=== PATIENT | female | born 1990 | race Two or more races ===

== ENCOUNTER 2020-12-16 20:54 | Emergency (ER) | payer SELFPAY ==
[~2020-12-16] VITALS: Ht 175.3 cm; Wt 95.1 kg
[2020-12-16] MEDS ORDERED: KETOROLAC 30 MG/1 ML ONE (21:38)
[2020-12-16] MEDS ORDERED: KETOROLAC 30 MG/1 ML IVPush ONE (22:00)
[2020-12-16] MEDS ORDERED: SODIUM CHLORIDE 0.9% 1,000ML IVBOLUS ONE (22:00)
[2020-12-16 22:04] LABS: BASOPHILS % (AUTO) 1 % (0-1); EOSINOPHILS % (AUTO) 0 % (1-7); LYMPHOCYTES % (AUTO) 23 % (22-44); MEAN CORPUSCULAR HGB CONC 33.4 g/dL (32.4-35.8); MONOCYTES % (AUTO) 7 % (2-9); NEUTROPHILS % (AUTO) 70 % (42-75); PLATELET COUNT 179 x10^3/uL (130-400); RED BLOOD COUNT 5.14 x10^6/uL (3.82-5.3); RED CELL DISTRIBUTION WIDTH 13.4 % (9.6-15.2)
[2020-12-16 22:05] LABS: MD NO
[2020-12-16 22:15] LABS: ALANINE AMINOTRANSFERASE 44 U/L (12-78); ALBUMIN 3.6 g/dL (3.4-5.0); ANION GAP 8 mmol/L (5-15); CALCIUM 8.4 mg/dL (8.5-10.1); CHLORIDE 107 mmol/L (98-107); CREATININE 0.83 mg/dL (0.55-1.02)
[2020-12-16 22:20] LABS: ALKALINE PHOSPHATASE 73 U/L (45-117); BILIRUBIN,TOTAL 0.7 mg/dL (0.2-1.0); TOTAL PROTEIN 8.1 g/dL (6.4-8.2)
[2020-12-16] MEDS ORDERED: ONDANSETRON 2MG/ML, 2ML ONE (22:21)
[2020-12-16] MEDS ORDERED: ONDANSETRON 2MG/ML, 2ML IVPush ONE (22:30)
[2020-12-16] MEDS ORDERED: BENZONATATE 100 MG CAPSULE ONE (22:44)
[2020-12-16 22:53] VITALS: BP 111/68
[2020-12-16] MEDS ORDERED: BENZONATATE 100 MG CAPSULE PO ONE (23:00)
== END 2020-12-16 23:04 | disposition home or self-care (01) ==
LOC: ED 22:40
DX: U07.1 COVID-19 (principal); J00 Acute nasopharyngitis [common cold]; R51.9 Headache, unspecified; R11.2 Nausea with vomiting, unspecified; R05 Cough; R19.7 Diarrhea, unspecified; R50.9 Fever, unspecified; R94.31 Abnormal electrocardiogram [ECG] [EKG]; M79.10 Myalgia, unspecified site
CPT/HCPCS: 36415; 71045; 80053; 84703; 85025; 93005; 96361; 96374; 96375; 99285; J1885; J2405; J7030; U0003